=== PATIENT | female | born 1990 | race African-American/Black ===

== ENCOUNTER 2018-01-09 11:07 | Emergency (ER) | payer OTHER ==
[~2018-01-09] VITALS: Ht 175.3 cm; Wt 58.5 kg
[~2018-01-09 11:07] MED LIST: COMPLETENATE T1 EACH PO; IBUPROFEN 600600 M1 PO; PERCOCET 5-3251 EACH PO
[2018-01-09] MEDS ORDERED: LEXAPRO 10 MG T10 MG PO (12:11)
[2018-01-09 12:19] LABS: URINE BILIRUBIN NEGATIVE (Negative); URINE BLOOD 3+ (Negative); URINE CLARITY SL CLOUDY; URINE COLOR YELLOW; URINE GLUCOSE-RANDOM* NEGATIVE (Negative); URINE KETONES NEGATIVE (Negative); URINE PROTEIN (DIPSTICK) TRACE (Negative); URINE SPECIFIC GRAVITY 1.025 (1.005-1.035); URINE UROBILINOGEN 0.2 E.U./dl (0.2-1.0)
[2018-01-09 12:20] LABS: URINE LEUKOCYTES-REFLEX 2+ (Negative); URINE NITRITE-REFLEX POSITIVE (Negative)
[2018-01-09 12:27] LABS: HEMATOCRIT 39.2 % (37.0-47.0); HEMOGLOBIN 13.1 gm/dL (12.0-15.0); MCH 31.4 pg (26.0-34.0); MCHC 33.5 g/dL (28.0-37.0); MCV 93.6 fL (80.0-100.0); PLATELET COUNT 195 thou/uL (150-400); RBC 4.19 mil/uL (4.20-5.00); RDW 12.2 % (10.5-14.5)
[2018-01-09 12:28] LABS: CASTS None Seen /LPF (None Seen); CRYSTALS None Seen /LPF (None Seen); SQUAMOUS 0-3 Few /LPF (0-3)
[2018-01-09 12:29] LABS: BACTERIA-REFLEX >30 Many /HPF (None Seen); URINE RBC 0-2 Rare /HPF (0-2)
[2018-01-09 12:43] LABS: CREATININE 0.8 mg/dL (0.6-1.0); POTASSIUM 3.8 mmol/L (3.5-5.1)
[2018-01-09 12:50] LABS: ABSOLUTE NEUTROPHILS 5.9 thou/uL (1.4-8.2); ANISOCYTOSIS 1+
[2018-01-09] MEDS ORDERED: KEFLEX500 M1 PO (13:08)
[2018-01-09] MEDS ORDERED: MOBIC15 MG PO (13:09)
[2018-01-09] MEDS ORDERED: MICONAZOLE 3 2200 M1 VAG (13:15)
[2018-01-09 13:48] VITALS: BP 102/72
== END 2018-01-09 13:49 | disposition home or self-care (01) ==
LOC: ER 11:07
PROVIDERS: Emergency Medicine; Physician Assistant
DX: N12 Tubulo-interstitial nephritis, not specified as acute or chronic (principal); Z87.891 Personal history of nicotine dependence

== ENCOUNTER 2018-02-13 18:19 | Emergency (ER) | payer OTHER ==
[~2018-02-13] VITALS: Ht 175.3 cm; Wt 58.1 kg
[~2018-02-13 18:19] MED LIST changes: +KEFLEX500 M1 PO; +LEXAPRO 10 MG T10 MG PO; +MICONAZOLE 3 2200 M1 VAG; +MOBIC15 MG PO
[2018-02-13 19:37] LABS: ABSOLUTE NEUTROPHILS 8.6 thou/uL (1.4-8.2); BASOPHILS 0.3 % (0.0-2.0); EOSINOPHILS 0.4 % (0.0-3.0); HEMATOCRIT 39.6 % (37.0-47.0); HEMOGLOBIN 13.2 gm/dL (12.0-15.0); LYMPHOCYTES 14.4 % (24.0-44.0); MCH 31.4 pg (26.0-34.0); MCHC 33.4 g/dL (28.0-37.0); MCV 93.8 fL (80.0-100.0); MONOCYTES 10.2 % (1.0-8.0); PLATELET COUNT 185 thou/uL (150-400); POLYS 74.7 % (36.0-66.0); RBC 4.22 mil/uL (4.20-5.00); RDW 12.5 % (10.5-14.5); WBC 11.5 thou/uL (4.0-11.0)
[2018-02-13 19:39] LABS: CALCIUM 9.2 mg/dL (8.5-10.1); CREATININE 0.8 mg/dL (0.6-1.0); POTASSIUM 3.5 mmol/L (3.5-5.1)
[2018-02-13 21:28] LABS: URINE BILIRUBIN NEGATIVE (Negative); URINE BLOOD NEGATIVE (Negative); URINE CLARITY SL CLOUDY; URINE COLOR YELLOW; URINE GLUCOSE-RANDOM* NEGATIVE (Negative); URINE KETONES 2+ (Negative); URINE LEUKOCYTES-REFLEX 1+ (Negative); URINE NITRITE-REFLEX NEGATIVE (Negative); URINE PROTEIN (DIPSTICK) NEGATIVE (Negative); URINE UROBILINOGEN 0.2 E.U./dl (0.2-1.0)
[2018-02-13 21:35] LABS: MUCUS >6 Heavy strn/LPF (None Seen); SQUAMOUS >10 Many /LPF (0-3)
[2018-02-13 21:37] LABS: CASTS None Seen /LPF (None Seen); CRYSTALS None Seen /LPF (None Seen); URINE RBC 0-2 Rare /HPF (0-2)
[2018-02-13 21:38] LABS: BACTERIA-REFLEX None Seen /HPF (None Seen); YEAST-REFLEX Present (None Seen)
[2018-02-13] MEDS ORDERED: BACTRIM DS TAB1 EACH PO (22:44)
[2018-02-13 23:01] VITALS: BP 126/72
== END 2018-02-13 23:09 | disposition home or self-care (01) ==
LOC: ER 18:19
PROVIDERS: Emergency Medicine
DX: N12 Tubulo-interstitial nephritis, not specified as acute or chronic (principal); Z87.891 Personal history of nicotine dependence

== ENCOUNTER 2018-04-24 01:55 | Emergency (ER) | payer OTHER ==
[~2018-04-24] VITALS: Ht 175.3 cm; Wt 61.2 kg
--- NOTE | ~2018-04-24 | EKG ---
[address] [place] [place] [address] ELECTROCARDIOGRAM REPORT Name: LUCIE COFFEY Room #: DEP Tay#: [id number] Admission: 04/24/18 Attend Phys: Discharge: 04/24/18 Date of : [birth year] Report #: [id number] THIS REPORT FOR: //name// 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
[~2018-04-24 01:55] MED LIST changes: +BACTRIM DS TAB1 EACH PO
[2018-04-24 03:52] LABS: HEMATOCRIT 37.1 % (37.0-47.0); HEMOGLOBIN 12.6 gm/dL (12.0-15.0); RBC 4.08 mil/uL (4.20-5.00); RDW 12.8 % (10.5-14.5); WBC 8.7 thou/uL (4.0-11.0)
[2018-04-24 04:00] LABS: ANION GAP 8 mmol/L (7-16); BUN 7 mg/dL (7-18); CALCIUM 8.8 mg/dL (8.5-10.1); CHLORIDE 105 mmol/L (98-107); CO2 24 mmol/L (21-32); CREATININE 0.5 mg/dL (0.6-1.0); GLUCOSE 87 mg/dL (74-106); POTASSIUM 3.6 mmol/L (3.5-5.1); SODIUM 137 mmol/L (136-145)
[2018-04-24 04:09] LABS: ALBUMIN 3.3 g/dL (3.4-5.0); SGOT 21 U/L (15-37); SGPT 25 U/L (30-65); TOTAL BILIRUBIN 0.1 mg/dL (<0.1-1.0); TOTAL PROTEIN 6.7 g/dL (6.4-8.2); TROPONIN-I <0.06 ng/mL (<0.06)
[2018-04-24 04:52] VITALS: BP 92/59
== END 2018-04-24 05:02 | disposition home or self-care (01) ==
LOC: ER 01:55
PROVIDERS: Emergency Medicine
DX: R07.89 Other chest pain (principal); Z87.891 Personal history of nicotine dependence

== ENCOUNTER 2019-06-08 15:48 | Emergency (ER) | payer OTHER ==
[~2019-06-08] VITALS: Ht 175.3 cm; Wt 64.4 kg
[2019-06-08 16:31] LABS: HEMATOCRIT 38.4 % (37.0-47.0); HEMOGLOBIN 12.8 gm/dL (12.0-15.0); MCH 31.2 pg (26.0-34.0); MCHC 33.4 g/dL (28.0-37.0); MCV 93.5 fL (80.0-100.0); PLATELET COUNT 199 thou/uL (150-400); RBC 4.11 mil/uL (4.20-5.00); RDW 12.5 % (10.5-14.5)
[2019-06-08 16:44] LABS: CALCIUM 9.2 mg/dL (8.5-10.1); CREATININE 0.6 mg/dL (0.6-1.0)
[2019-06-08 16:47] LABS: POTASSIUM 2.9 mmol/L (3.5-5.1)
[2019-06-08 16:51] LABS: ALBUMIN 3.6 g/dL (3.4-5.0); TOTAL BILIRUBIN 0.4 mg/dL (<0.1-1.0); TOTAL PROTEIN 7.1 g/dL (6.4-8.2)
[2019-06-08 16:56] LABS: URINE BLOOD NEGATIVE (Negative); URINE CLARITY CLOUDY; URINE COLOR YELLOW; URINE GLUCOSE-RANDOM* NEGATIVE (Negative); URINE KETONES 1+ (Negative); URINE NITRITE-REFLEX NEGATIVE (Negative); URINE PROTEIN (DIPSTICK) NEGATIVE (Negative); URINE SPECIFIC GRAVITY >= 1.030 (1.005-1.035); URINE UROBILINOGEN 0.2 E.U./dl (0.2-1.0)
[2019-06-08 16:57] LABS: URINE LEUKOCYTES-REFLEX 1+ (Negative)
[2019-06-08 16:58] LABS: ICTOTEST (BILI CONFIRMATORY) Negative (Negative); URINE BILIRUBIN NEGATIVE (Negative)
[2019-06-08 17:13] LABS: BACTERIA-REFLEX >30 Many /HPF (None Seen); CASTS None Seen /LPF (None Seen); CRYSTALS None Seen /LPF (None Seen); SQUAMOUS 4-10 Moderate /LPF (0-3); URINE RBC None Seen /HPF (0-2)
[2019-06-08 17:14] LABS: URINE WBC-REFLEX 6-15 Few /HPF (0-5)
[2019-06-08 17:26] LABS: ABSOLUTE NEUTROPHILS 4.8 thou/uL (1.4-8.2); ANISOCYTOSIS 1+
[2019-06-08] MEDS ORDERED: DICLEGIS DR 101 EACH PO (18:25)
[2019-06-08] MEDS ORDERED: KEFLEX500 M1 PO (18:29)
[2019-06-08 19:10] VITALS: BP 114/72
== END 2019-06-08 19:15 | disposition home or self-care (01) ==
LOC: ER 15:48
PROVIDERS: Nurse Practitioner Family
DX: O23.41 Unspecified infection of urinary tract in pregnancy, first trimester (principal); O21.9 Vomiting of pregnancy, unspecified; E87.6 Hypokalemia; Z3A.01 Less than 8 weeks gestation of pregnancy; Z87.440 Personal history of urinary (tract) infections; Z87.891 Personal history of nicotine dependence

== ENCOUNTER 2019-07-31 12:34 | Emergency (ER) | payer OTHER ==
[~2019-07-31] VITALS: Ht 175.3 cm; Wt 63.5 kg
[~2019-07-31 12:34] MED LIST changes: +DICLEGIS DR 101 EACH PO
[2019-07-31 13:24] LABS: URINE BILIRUBIN NEGATIVE (Negative); URINE BLOOD TRACE (Negative); URINE CLARITY SL CLOUDY; URINE COLOR YELLOW; URINE GLUCOSE-RANDOM* NEGATIVE (Negative); URINE KETONES 2+ (Negative); URINE LEUKOCYTES-REFLEX NEGATIVE (Negative); URINE NITRITE-REFLEX NEGATIVE (Negative); URINE PROTEIN (DIPSTICK) TRACE (Negative); URINE SPECIFIC GRAVITY >= 1.030 (1.005-1.035); URINE UROBILINOGEN 0.2 E.U./dl (0.2-1.0)
[2019-07-31] MEDS ORDERED: SERTRALINE HCL100 MG PO (13:27)
[2019-07-31 13:34] LABS: ABSOLUTE NEUTROPHILS 3.7 thou/uL (1.4-8.2); BASOPHILS 0.5 % (0.0-2.0); EOSINOPHILS 0.2 % (0.0-3.0); HEMATOCRIT 35.5 % (37.0-47.0); HEMOGLOBIN 11.9 gm/dL (12.0-15.0); LYMPHOCYTES 15.8 % (24.0-44.0); MCH 31.2 pg (26.0-34.0); MCHC 33.5 g/dL (28.0-37.0); MCV 92.9 fL (80.0-100.0); PLATELET COUNT 184 thou/uL (150-400); POLYS 71.5 % (36.0-66.0); RBC 3.82 mil/uL (4.20-5.00); RDW 12.3 % (10.5-14.5); WBC 5.2 thou/uL (4.0-11.0)
[2019-07-31 13:35] LABS: CALCIUM 9.3 mg/dL (8.5-10.1); CREATININE 0.7 mg/dL (0.6-1.0)
[2019-07-31 17:06] VITALS: BP 92/62
== END 2019-07-31 17:06 | disposition home or self-care (01) ==
LOC: ER 12:34
PROVIDERS: Emergency Medicine; Nurse Practitioner Family
DX: O26.891 Other specified pregnancy related conditions, first trimester (principal); B34.9 Viral infection, unspecified; F41.9 Anxiety disorder, unspecified; F32.9 Major depressive disorder, single episode, unspecified; Z3A.14 14 weeks gestation of pregnancy; Z87.440 Personal history of urinary (tract) infections; Z87.891 Personal history of nicotine dependence

== ENCOUNTER 2019-09-28 22:28 | Emergency (ER) | payer OTHER ==
[~2019-09-28] VITALS: Ht 175.3 cm; Wt 72.6 kg
[~2019-09-28 22:28] MED LIST changes: +SERTRALINE HCL100 MG PO
[2019-09-28 23:16] LABS: HEMATOCRIT 32.4 % (37.0-47.0); HEMOGLOBIN 10.8 gm/dL (12.0-15.0); MCH 31.6 pg (26.0-34.0); MCHC 33.2 g/dL (28.0-37.0); MCV 95.3 fL (80.0-100.0); RBC 3.4 mil/uL (4.20-5.00); RDW 13.1 % (10.5-14.5); WBC 8.6 thou/uL (4.0-11.0)
[2019-09-28 23:23] LABS: ANION GAP 11 mmol/L (7-16); BUN 10 mg/dL (7-18); CALCIUM 8.8 mg/dL (8.5-10.1); CHLORIDE 102 mmol/L (98-107); CO2 21 mmol/L (21-32); CREATININE 0.5 mg/dL (0.6-1.0); GLUCOSE 74 mg/dL (74-106); POTASSIUM 3.1 mmol/L (3.5-5.1); SODIUM 134 mmol/L (136-145)
[2019-09-28 23:32] LABS: MAGNESIUM 1.6 mg/dL (1.8-2.4); TROPONIN-I <0.06 ng/mL (<0.06)
[2019-09-28 23:39] LABS: URINE BILIRUBIN NEGATIVE (Negative); URINE BLOOD NEGATIVE (Negative); URINE CLARITY SL CLOUDY; URINE COLOR YELLOW; URINE GLUCOSE-RANDOM* NEGATIVE (Negative); URINE KETONES 2+ (Negative); URINE LEUKOCYTES-REFLEX NEGATIVE (Negative); URINE NITRITE-REFLEX NEGATIVE (Negative); URINE PROTEIN (DIPSTICK) TRACE (Negative); URINE SPECIFIC GRAVITY >= 1.030 (1.005-1.035); URINE UROBILINOGEN 0.2 E.U./dl (0.2-1.0)
[2019-09-29] MEDS ORDERED: AUGMENTIN 875-1 EACH PO (02:15)
[2019-09-29 04:10] VITALS: BP 87/43
--- NOTE | 2019-10-06 15:33 | EKG ---
[facility] [place] [address] ELECTROCARDIOGRAM REPORT Name: LUCIE COFFEY [id number] Admission: 09/28/19 Attend Phys: Discharge: 09/29/19 Date of : [birth year] Report #: [id number] THIS REPORT FOR: cc: Troy Loving K. Steven DO Lundgren, Craig H. 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1990 Requested By: Niki Cordova Order Number: [id number] MD: Uzair Ruiz Measurements Intervals [place] Rate: 101 P: 47 MT: 134 QRS: 6 QRSD: 82 T: -16 QT: 320 QTc: 415 Interpretive Statements Sinus tachycardia Probable anteroseptal infarct, old Borderline T abnormalities, inferior leads Baseline wander in lead(s) V3,V4,V5,V6 Compared to ECG 04/24/2018 02:18:46 No significant change was found Electronically Signed On 09-29-2019 9:43:03 [employer]SEM[employer] by Uzair Ruiz [email or web address] <ELECTRONICALLY SIGNED> By: Uzair Ruiz MD, FACC 09/29/19 0943 31 31 Uazir Ruiz MD, FAC /EPI
== END 2019-09-29 04:10 | disposition home or self-care (01) ==
LOC: ER 22:28
PROVIDERS: Emergency Medicine Emergency Medical Services
DX: O99.512 Diseases of the respiratory system complicating pregnancy, second trimester (principal); O26.892 Other specified pregnancy related conditions, second trimester; E87.6 Hypokalemia; E83.42 Hypomagnesemia; O23.42 Unspecified infection of urinary tract in pregnancy, second trimester; Z3A.22 22 weeks gestation of pregnancy; Z87.891 Personal history of nicotine dependence